=== PATIENT | female | born 1955 | race Two or more races ===

== ENCOUNTER → 2024-06-20 | Outpatient (CLI) | payer OTHER, SELFPAY ==
[2024-06-20 08:47] LABS: Glucose Estimated Average 123 mg/dL (80-131); Hemoglobin A1C 5.9 % Hgb (4.8-6.0)
== END | disposition home or self-care (01) ==
LOC: COPL 07:23
PROVIDERS: PCP Family Medicine; Referring Provider Family Medicine; Visit Provider Family Medicine
DX: E11.65 Type 2 diabetes mellitus with hyperglycemia (principal)
CPT/HCPCS: 36415; 83036

== ENCOUNTER → 2024-10-01 | Outpatient (CLI) | payer OTHER, SELFPAY ==
[2024-10-01 09:33] LABS: Glucose Estimated Average 131 mg/dL (80-131); Hemoglobin A1C 6.2 % Hgb (4.8-6.0)
[2024-10-01 09:42] LABS: Cardiac Risk Estimate 2.6 RATIO (3.7-5.6); Cholesterol 156 mg/dL (132-200); HDL Cholesterol 59 mg/dL (40-60); LDL Cholesterol,Calculated 79 mg/dL (0-130); Triglycerides 90 mg/dL (30-150)
[2024-10-06 07:00] LABS: Fecal Globin Result NOT DETECTED (NOT DETECTED)
== END | disposition home or self-care (01) ==
LOC: COPL 07:04
PROVIDERS: PCP Family Medicine; Referring Provider Family Medicine; Visit Provider Family Medicine
DX: Z12.11 Encounter for screening for malignant neoplasm of colon (principal); E11.65 Type 2 diabetes mellitus with hyperglycemia
CPT/HCPCS: 36415; 80061; 82274; 83036; G0328

== ENCOUNTER 2024-12-29 10:40 | Day surgery (SDC) | payer OTHER, SELFPAY ==
[2024-12-29] VITALS (10 sets, daily range): BP systolic 101–148; BP diastolic 61–74; PULSE 73–82; RESP 12–20; TEMP 36.3–36.6; O2SAT 96–100; BMI 33.6
[2024-12-29] MEDS: MIDAZOLAM INJ 1 MG/ML VIAL 2 ML (ASD USE ONLY) 2 MG IVP (12:36)
[2024-12-29] MEDS: fentaNYL CIT INJ 50 mCg/ML AMP 2ML (ASD USE ONLY) IVP (12:36)
[2024-12-29] MEDS: DiphenhydrAMINE INJ 50 MG/ML VIAL 25 MG IVP (12:37)
--- NOTE | 2024-12-29 12:57 | SUR.PHASEII ---
1244 patient is awake, alert, breathing unlabored, s/p colonoscoy under IV sedation, report received from Estefania CHONG
--- NOTE | 2024-12-29 13:26 | SUR.PHASEII ---
1244 patient is sleepy and arousable, breathing unlabored, s/p coloncoscopy under IV sedation, report received from Estefania CHONG, patient had small loose bowel movement, pt cleaned.
--- NOTE | 2024-12-29 13:59 | SUR.PHASEII ---
1338 patient is awake, alert, breathing unlabored, able to tolerate water with no nausea or vomiting meets discharge criteria, discharge instructions given to patient and son Johnnie, patient discharged home in wheelchair with all belongings.
== END 2024-12-29 13:38 | disposition home or self-care (01) ==
PROVIDERS: PCP Family Medicine; Referring Provider Specialist; Visit Provider Specialist
PROC: 0DBE8ZX Excision of Large Intestine, Via Natural or Artificial Opening Endoscopic, Diagnostic (ICD-10-PCS; CPT 45380; principal; 2024-12-29 10:45)
DX: K64.9 Unspecified hemorrhoids (principal)
CPT/HCPCS: G0121; J1200; J2250; J3010

== ENCOUNTER → 2025-02-10 | Outpatient (CLI) | payer OTHER, SELFPAY ==
[2025-02-10 17:43] LABS: Glucose Estimated Average 154 mg/dL (80-131); Hemoglobin A1C 7.0 % Hgb (4.8-6.0)
== END | disposition home or self-care (01) ==
LOC: COPL 16:31
PROVIDERS: PCP Family Medicine; Referring Provider Family Medicine; Visit Provider Family Medicine
DX: E11.65 Type 2 diabetes mellitus with hyperglycemia (principal)
CPT/HCPCS: 36415; 83036

== ENCOUNTER → 2025-06-10 | Outpatient (CLI) | payer OTHER, SELFPAY ==
--- NOTE | 2025-06-10 14:30 | XR_ITS ---
Examination: Bone densitometry Date and time of exam: June 10, 2025, 1456 hours INDICATIONS: Hysterectomy age 45, diabetic, calcium 10 years Technique: Lumbar spine and hip total bone mineralization values of an calculated. Peak reference and age match control results have been displayed. Findings: Lumbar spine total bone mineralization is 0.933 gm/cm2. This is 1.0 standard deviations below peak reference. This is 1.0 standard deviations above age-matched controls. Hip total bone mineralization is 0.849 gm/cm2 This is 0.8 standard deviations below peak reference. This is 0.6 standard deviations above age-matched controls Impression: There is normal mineralization based on lumbar spine measurements. There is osteopenia based on hip measurements
--- NOTE | 2025-06-10 14:50 | XR_ITS ---
Examination: Screening digital mammography, bilateral Computer aided detection 3-D breast Tomosynthesis, bilateral Date and time of exam: June 10, 2025, 1456 hours, compared to mammograms dating to July 26, 2022 Indication: Screening Technique: Nonmagnified MLO, CC views of the breasts to been obtained, reconstructed from 3-D Tomosynthesis images. R2 computer aided detection program utilized for evaluation of suspicious masses and/or abnormal calcifications. 3-D Tomosynthesis images obtained. Findings: Scattered areas of fibroglandular density. Benign calcifications. No interval suspicious masses Impression: BI-RADS category II: Benign Findings. Recommend 1 year follow-up mammogram.
== END | disposition home or self-care (01) ==
PROVIDERS: PCP Family Medicine; Referring Provider Family Medicine; Visit Provider Family Medicine
DX: Z12.31 Encounter for screening mammogram for malignant neoplasm of breast (principal); R92.323 Mammographic fibroglandular density, bilateral breasts; R92.1 Mammographic calcification found on diagnostic imaging of breast; Z00.00 Encounter for general adult medical examination without abnormal findings; M85.88 Other specified disorders of bone density and structure, other site
CPT/HCPCS: 77063; 77067; 77080

== ENCOUNTER → 2025-06-12 | Outpatient (CLI) | payer OTHER, SELFPAY ==
[2025-06-12 08:37] LABS: Basophils # (Auto) 0.1 Thou/mm3 (0.0-0.2); Basophils % (Auto) 1 % (0-2.5); Eosinophils # (Auto) 0.2 Thou/mm3 (0.0-0.5); Eosinophils % (Auto) 3 % (0-10); Hematocrit 38.5 % (36.0-46.0); Hemoglobin 12.4 g/dL (12.0-16.0); Immature Granulocytes Auto 0.01 Thou/mm3 (0.00-0.00); Lymphocytes # (Auto) 2.6 Thou/mm3 (1.0-4.8); Lymphocytes % (Auto) 41 % (10-50); Mean Corpuscular HGB Conc 32.2 g/dl (31.0-37.0); Mean Corpuscular Hemoglobin 27.5 pg (25.0-35.0); Mean Corpuscular Volume 85 fL (80-100); Monocytes # (Auto) 0.4 Thou/mm3 (0.0-0.8); Monocytes % (Auto) 6 % (0-12); Neutrophils # (Auto) 3.0 Thou/mm3 (1.8-7.7); Neutrophils % (Auto) 48 % (37-80); Nucleated Red Blood Cell # 0.00 Thou/mm3 (0.00-0.00); Nucleated Red Blood Cell % 0 /100 WBC (0); Platelet Count 273 Thou/mm3 (140-440); RDW Standard Deviation 44.7 fL (36.4-46.3); Red Blood Count 4.51 Miln/mm3 (4.00-5.20); White Blood Count 6.2 Thou/mm3 (3.6-11.0)
[2025-06-12 08:46] LABS: Glucose Estimated Average 143 mg/dL (80-131); Hemoglobin A1C 6.6 % Hgb (4.8-6.0)
[2025-06-12 08:57] LABS: Creatinine MALB Rnd Ur 77 mg/dL (30-125); Microalbumin, Random Urine < 3 mg/L (0-300)
[2025-06-12 09:04] LABS: Alanine Aminotransferase 40 U/L (10-49); Albumin, Serum 4.6 gm/dL (3.4-4.8); Albumin/Globulin Ratio 1.8 (1.2-2.2); Alkaline Phosphatase 118 U/L (46-116); Anion Gap 9 (7-16); Aspartate Amino Transferase 43 U/L (0-34); BUN/Creatinine Ratio 16 Ratio (12-20); Bilirubin,Total 0.8 mg/dL (0.3-1.2); Blood Urea Nitrogen 13 mg/dL (9-23); Calcium 9.5 mg/dL (8.3-10.6); Calcium (Corrected) 9.5 mg/dL (8.5-10.1); Carbon Dioxide 29.3 mMol/L (20.0-31.0); Cardiac Risk Estimate 2.7 RATIO (3.7-5.6); Chloride 103 mMol/L (98-107); Cholesterol 129 mg/dL (132-200); Creatinine (Component) 0.8 mg/dL (0.6-1.3); Globulin 2.6 gm/dL (2.3-3.5); Glucose 124 mg/dL (74-106); HDL Cholesterol 48 mg/dL (40-60); LDL Cholesterol,Calculated 60 mg/dL (0-130); Osmolality,Calculated 282 (275-295); Potassium 4.7 mMol/L (3.4-5.1); Sodium 141 mMol/L (136-145); Thyroid Stimulating Hormone 1.62 uIU/mL (0.55-4.78); Total Protein 7.2 gm/dL (5.7-8.2); Triglycerides 103 mg/dL (30-150); eGFR > 60 See Note
== END | disposition home or self-care (01) ==
LOC: COPL 07:31
PROVIDERS: PCP Family Medicine; Referring Provider Family Medicine; Visit Provider Family Medicine
DX: E11.65 Type 2 diabetes mellitus with hyperglycemia (principal)
CPT/HCPCS: 36415; 80053; 80061; 82043; 82570; 83036; 84443; 85025